=== PATIENT | female | born 2000 | race Caucasian/White ===

== ENCOUNTER 2023-04-15 11:17 | Outpatient (REF) | payer MEDICAID, SELFPAY ==
[2023-04-18 15:34] LABS: TS Negative Control Passed; TS Panel A 0; TS Panel B 0; TS Positive Control Passed; TSpotTB Negative (Negative)
[2023-04-18 17:57] LABS: Rubella IgG Antibody 2.33 Index; Rubella IgM Antibody <20.00 AU/mL
[2023-04-21 23:24] LABS: Rubeola IgM (Measles) <1:20 titer
== END 2023-04-15 11:18 | disposition home or self-care (01) ==
LOC: HO.CHCLDS 11:17
PROVIDERS: Visit Provider Internal Medicine
DX: Z01.84 Encounter for antibody response examination (principal); Z11.1 Encounter for screening for respiratory tuberculosis
CPT/HCPCS: 36415; 86481; 86735; 86762; 86765; 86787